=== PATIENT | female | born 1955 | race Hispanic/Latino ===

== ENCOUNTER → 2020-09-09 | Outpatient (CLI) | payer MEDICARE, OTHER ==
[~2020-09-09] MED LIST: BENICAR HCT 201 EACH PO; FENOFIBRATE145 MG PO; LEVOTHYROXINE112 MCG PO; PREMARIN PO; SIMVASTATIN20 MG PO
== END ==
LOC: MAMMO 10:34
PROVIDERS: ATTEND Obstetrics & Gynecology
DX: Z12.31 Encounter for screening mammogram for malignant neoplasm of breast (principal)
CPT/HCPCS: 77067